=== PATIENT | male | born 1935 | race Caucasian/White ===

== ENCOUNTER 2020-11-09 09:53 | Observation (INO) ==
[2020-11-09] MEDS ORDERED: SODIUM CHLORIDE 0.9% 1,000 ML IV STA (10:44)
[2020-11-09 11:01] LABS: Basophils # 0.1 10*3/uL (0.0-0.2); Basophils % 0.8 % (0.0-0.8); Eosinophils # 0.3 10*3/uL (0.0-0.87); Eosinophils % 3.5 % (0.00-10.9); Hematocrit 39.5 VOL% (42.0-52.0); Immature Granulocytes % 0.2 %; Immature Granulocytes Absolute 0.02 #; Lymphocytes # 2.2 10*3/uL (1.4-4.0); Lymphocytes % 25.9 % (21.2-54.2); Mean Corpuscular HGB Conc 32.9 GM/DL (32-36); Mean Corpuscular Volume 97.3 FL (87-102); Mean Platelet Volume 10.5 FL (9.6-12.0); Monocytes % 9.5 % (1.7-12.7); Neutrophils % 60.1 % (38.7-73.9); Platelet Count 226 T/CUMM (130-400); Red Blood Count 4.06 MC/CUMM (3.8-5.5); Red Cell Distribution Width 13.5 % (9.3-17.3); White Blood Count 8.5 T/CUMM (4-12)
[2020-11-09 11:21] LABS: Albumin 3.7 G/DL (3.4-5.0); Bilirubin,Total 0.9 MG/DL (0.2-1.0); Calcium 9.1 MG/DL (8.5-10.1); Osmolality,Calculated 277.7 MOS/KG (273-304); Potassium 4.2 MMOL/L (3.5-5.1); Total Protein 7.3 G/DL (6.4-8.2)
[2020-11-09 11:29] LABS: Bilirubin,Urine Negative (Negative); Blood, Urine Negative (Negative); Glucose,Urine (UA) Negative (Negative); Ketones,Urine Negative (Negative); Mucus,Urine Occasional /LPF (Occasional); Nitrite,Urine Negative (Negative); Protein,Urine Negative; RBC,Urine 1 /HPF (0-4); Squamous Epithelial Cell,Urine Occasional /HPF (0-10); Urine Appearance CLEAR (Clear); Urine Color Yellow (Yellow); Urine Urobilinogen < 2.0 EU/DL (0.2-1.0)
[2020-11-09] MEDS ORDERED: ONDANSETRON 4 MG/2 ML VIAL ONE (12:12)
[2020-11-09] MEDS ORDERED: HYDROmorphone 2 MG/1 ML VIAL ONE (12:13)
[2020-11-09] MEDS ORDERED: PIPERACILLIN/TAZOBACTAM 3,375 MG in SODIUM CHLORIDE 0.9% 100 ML IV STA (12:17)
[2020-11-09] MEDS ORDERED: HYDROmorphone 2 MG/1 ML VIAL IV STA (13:15)
[2020-11-09] MEDS ORDERED: ONDANSETRON 4 MG/2 ML VIAL IV STA (13:15)
[2020-11-09] MEDS ORDERED: MORPHINE 4 MG/1 ML VIAL IV PRN (13:30)
[2020-11-09] MEDS ORDERED: GLUCAGON 1 MG VIAL IM PRN (13:30)
[2020-11-09] MEDS ORDERED: DOCUSATE SODIUM 100 MG CAPSULE PO PRN (13:30)
[2020-11-09] MEDS ORDERED: DEXTROSE 50% 25 GM/50 ML VIAL IV PRN (13:30)
[2020-11-09] MEDS ORDERED: ONDANSETRON 4 MG/2 ML VIAL IV PRN (13:30)
[2020-11-09] MEDS ORDERED: ACETAMINOPHEN 325 MG TABLET PO PRN (13:30)
[2020-11-09] MEDS ORDERED: ENOXAPARIN 40 MG/0.4 ML SYRINGE SUBCUT SCH (13:30)
[2020-11-09] MEDS ORDERED: hydrALAZINE 20 MG/1 ML VIAL IV PRN (13:30)
[2020-11-09] MEDS ORDERED: MAGNESIUM SULF RIDER 2 GM in PREMIX 1 EACH IV PRN (13:36)
[2020-11-09] MEDS ORDERED: MAGNESIUM SULF RIDER 4 GM in PREMIX 1 EACH IV PRN (13:36)
[2020-11-09] MEDS: SODIUM CHLORIDE 0.9% 1,000 ML IV SCH (17:29)
[2020-11-09] MEDS: CIPROFLOXACIN INJ 400 MG in PREMIX 1 EACH IV SCH (17:29)
[2020-11-09] MEDS: metroNIDAZOLE INJ 500 MG in PREMIX 1 EACH IV SCH ×2 (18:44→23:54)
[2020-11-09] MEDS ORDERED: ROSUVASTATIN 20 MG TABLET PO SCH (21:00)
[2020-11-09] MEDS ORDERED: POTASSIUM GLUCONATE 500 MG TABLET PO SCH (21:00)
[2020-11-09] MEDS ORDERED: SPIRONOLACTONE 25 MG TABLET PO SCH (21:00)
[2020-11-09] MEDS ORDERED: LOSARTAN 25 MG TABLET PO SCH (21:00)
[2020-11-09] MEDS ORDERED: CLOPIDOGREL 75 MG TABLET PO SCH (21:00)
[2020-11-09] MEDS ORDERED: ASPIRIN EC 81 MG TABLET PO SCH (21:00)
[2020-11-09] MEDS ORDERED: SERTRALINE 25 MG TABLET PO SCH (21:00)
[2020-11-09] MEDS ORDERED: MULTIVITAMIN (BEROCCA) TABLET PO SCH (21:00)
[2020-11-09] MEDS: GABAPENTIN 300 MG CAPSULE PO SCH (21:20)
[2020-11-10] MEDS: CIPROFLOXACIN INJ 400 MG in PREMIX 1 EACH IV SCH (02:07)
[2020-11-10 06:08] LABS: Basophils % 0.6 % (0.0-0.8); Eosinophils # 0.3 10*3/uL (0.0-0.87); Eosinophils % 5.2 % (0.00-10.9); Hematocrit 33.1 VOL% (42.0-52.0); Hemoglobin 10.9 GM/DL (14.0-18.0); Immature Granulocytes % 0.2 %; Immature Granulocytes Absolute 0.01 #; Lymphocytes # 1.6 10*3/uL (1.4-4.0); Lymphocytes % 25.9 % (21.2-54.2); Mean Corpuscular HGB Conc 32.9 GM/DL (32-36); Mean Corpuscular Volume 98.8 FL (87-102); Mean Platelet Volume 10.8 FL (9.6-12.0); Neutrophils % 56.1 % (38.7-73.9); Platelet Count 177 T/CUMM (130-400); Red Blood Count 3.35 MC/CUMM (3.8-5.5); Red Cell Distribution Width 13.2 % (9.3-17.3); White Blood Count 6.3 T/CUMM (4-12)
[2020-11-10 06:49] LABS: Calcium 8.5 MG/DL (8.5-10.1); Osmolality,Calculated 277.5 MOS/KG (273-304); Potassium 3.9 MMOL/L (3.5-5.1); Risk Ratio 2.79; Thyroid Stimulating Hormone 3.06 uIU/ml (0.358-3.74); VLDL CHOLESTEROL 25.4 MG/DL
[2020-11-10] MEDS: metroNIDAZOLE INJ 500 MG in PREMIX 1 EACH IV SCH (07:35)
[2020-11-10] MEDS: GABAPENTIN 300 MG CAPSULE PO SCH (08:38)
[2020-11-10] MEDS: SODIUM CHLORIDE 0.9% 1,000 ML IV SCH (08:40)
[2020-11-10] MEDS ORDERED: PANTOPRAZOLE 40 MG TABLET PO SCH (09:00)
[2020-11-10] MEDS ORDERED: MAGNESIUM OXIDE 400 MG TABLET PO SCH (09:00)
[2020-11-10] MEDS ORDERED: FUROSEMIDE 20 MG TABLET PO SCH (09:00)
[2020-11-10] MEDS ORDERED: MONTELUKAST 10 MG TABLET PO SCH (09:00)
[2020-11-10] MEDS ORDERED: CHOLECALCIFEROL 5,000 UNIT TABLET PO SCH (09:00)
[2020-11-10 11:59] VITALS: BP 168/68
== END 2020-11-10 13:03 | disposition home or self-care (01) ==
LOC: N.ED 09:53 → N.EDINP 09:53 → N.3E 15:09
PROVIDERS: ADMIT Internal Medicine; ATTEND Internal Medicine

== ENCOUNTER 2020-11-21 21:16 | Observation (INO) ==
[2020-11-22] MEDS ORDERED: DEXTROSE 50% 25 GM/50 ML VIAL IV PRN (00:28)
[2020-11-22] MEDS ORDERED: MORPHINE 4 MG/1 ML VIAL IV PRN (00:28)
[2020-11-22] MEDS ORDERED: GLUCAGON 1 MG VIAL IM PRN (00:28)
[2020-11-22] MEDS ORDERED: DOCUSATE SODIUM 100 MG CAPSULE PO PRN (00:28)
[2020-11-22] MEDS ORDERED: ONDANSETRON 4 MG/2 ML VIAL IV PRN (00:28)
[2020-11-22] MEDS ORDERED: ACETAMINOPHEN 325 MG TABLET PO PRN (00:28)
[2020-11-22] MEDS ORDERED: ENOXAPARIN 100 MG/ML SYRINGE SUBCUT ONE (00:46)
[2020-11-22 03:28] LABS: Basophils # 0.1 10*3/uL (0.0-0.2); Basophils % 0.8 % (0.0-0.8); Eosinophils # 0.4 10*3/uL (0.0-0.87); Hematocrit 34.1 VOL% (42.0-52.0); Hemoglobin 11.9 GM/DL (14.0-18.0); Immature Granulocytes % 0.2 %; Immature Granulocytes Absolute 0.01 #; Lymphocytes # 2.7 10*3/uL (1.4-4.0); Lymphocytes % 43.6 % (21.2-54.2); Mean Corpuscular HGB Conc 34.9 GM/DL (32-36); Mean Platelet Volume 10.9 FL (9.6-12.0); Neutrophils % 40.4 % (38.7-73.9); Platelet Count 216 T/CUMM (130-400); Red Blood Count 3.59 MC/CUMM (3.8-5.5); Red Cell Distribution Width 13.3 % (9.3-17.3); White Blood Count 6.1 T/CUMM (4-12)
[2020-11-22 03:55] LABS: PT Patient Result 11.4 SECS (9.8-11.9)
[2020-11-22 03:55] LABS: Bilirubin,Total 0.5 MG/DL (0.2-1.0); Calcium 8.4 MG/DL (8.5-10.1); Osmolality,Calculated 280.4 MOS/KG (273-304); Potassium 3.8 MMOL/L (3.5-5.1); Risk Ratio 2.61; Thyroid Stimulating Hormone 6.7 uIU/ml (0.358-3.74); VLDL CHOLESTEROL 16.8 MG/DL
[2020-11-22] MEDS ORDERED: POTASSIUM CHLORIDE 20 MEQ TABLET PO ONE (04:05)
[2020-11-22] MEDS ORDERED: POTASSIUM CHLORIDE 20 MEQ TABLET PO PRN (04:05)
[2020-11-22] MEDS ORDERED: MAGNESIUM SULF RIDER 2 GM/50 ML PREMIX IV PRN (04:05)
[2020-11-22] MEDS ORDERED: MAGNESIUM SULF RIDER 4 GM/100 ML PREMIX IV PRN (04:05)
[2020-11-22] MEDS: GABAPENTIN 300 MG CAPSULE PO SCH (20:19)
[2020-11-22] MEDS ORDERED: SPIRONOLACTONE 25 MG TABLET PO SCH (21:00)
[2020-11-22] MEDS ORDERED: PANTOPRAZOLE 40 MG TABLET PO SCH (21:00)
[2020-11-22] MEDS ORDERED: CLOPIDOGREL 75 MG TABLET PO SCH (21:00)
[2020-11-22] MEDS ORDERED: MULTIVITAMIN (BEROCCA) TABLET PO SCH (21:00)
[2020-11-22] MEDS ORDERED: ROSUVASTATIN 20 MG TABLET PO SCH (21:00)
[2020-11-22] MEDS ORDERED: SERTRALINE 25 MG TABLET PO SCH (21:00)
[2020-11-22] MEDS ORDERED: ASPIRIN EC 81 MG TABLET PO SCH (21:00)
[2020-11-23 06:00] LABS: Basophils # 0.1 10*3/uL (0.0-0.2); Eosinophils # 0.4 10*3/uL (0.0-0.87); Eosinophils % 5.1 % (0.00-10.9); Hematocrit 37.3 VOL% (42.0-52.0); Hemoglobin 12.1 GM/DL (14.0-18.0); Immature Granulocytes % 0.1 %; Immature Granulocytes Absolute 0.01 #; Lymphocytes # 2.5 10*3/uL (1.4-4.0); Lymphocytes % 35.5 % (21.2-54.2); Mean Corpuscular HGB Conc 32.4 GM/DL (32-36); Mean Corpuscular Volume 97.4 FL (87-102); Monocytes % 9.2 % (1.7-12.7); Neutrophils % 49.1 % (38.7-73.9); Platelet Count 263 T/CUMM (130-400); Red Blood Count 3.83 MC/CUMM (3.8-5.5); Red Cell Distribution Width 13.6 % (9.3-17.3); White Blood Count 7.1 T/CUMM (4-12)
[2020-11-23 06:28] LABS: Osmolality,Calculated 284.1 MOS/KG (273-304); Potassium 4.2 MMOL/L (3.5-5.1)
[2020-11-23] MEDS: GABAPENTIN 300 MG CAPSULE PO SCH (08:23)
[2020-11-23] MEDS ORDERED: MAGNESIUM OXIDE 400 MG TABLET PO SCH (09:00)
[2020-11-23] MEDS ORDERED: LOSARTAN 25 MG TABLET PO SCH (09:00)
[2020-11-23] MEDS ORDERED: POTASSIUM CHLORIDE 10 MEQ TABLET PO SCH (09:00)
[2020-11-23] MEDS ORDERED: CHOLECALCIFEROL 5,000 UNIT TABLET PO SCH (09:00)
[2020-11-23] MEDS ORDERED: MONTELUKAST 10 MG TABLET PO SCH (09:00)
[2020-11-23] MEDS ORDERED: FUROSEMIDE 20 MG TABLET PO SCH (09:00)
[2020-11-23 11:58] VITALS: BP 121/67
== END 2020-11-23 15:12 | disposition home or self-care (01) ==
LOC: N.TELEN
PROVIDERS: ADMIT Internal Medicine; ATTEND Internal Medicine